=== PATIENT | male | born 1970 | race Two or more races ===

== ENCOUNTER 2019-12-12 13:01 | Emergency (ER) | payer OTHER, BC ==
--- NOTE | 2019-12-12 13:13 | EDM.PDOC ---
ED HPI GENERAL MEDICAL PROBLEM - General Chief Complaint: Lower Extremity Injury/Pain Stated Complaint: RT ANKLE INJURY Time Seen by Provider: 12/12/19 13:05 - History of Present Illness INITIAL COMMENTS - FREE TEXT/NARRATIVE: 49-year-old male presents the emergency room with a right ankle injury. This occurred on Thursday. 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 He has had some discomfort with this and it is difficult for him to walk he has pain on both sides of the ankle much worse on the lateral side than on the medial side. Patient denies any other injuries associated with this unfortunate event and he has no other complaints at this time. Past medical history is significant for hypertension and his physician back home is watching his cholesterol. I did notice on his med list that he is on 2 blood pressure medications at the same class and did recommend to the patient that when he gets home he needs to talk to his doctor about this. Right Ankle Pain Score (Numeric/FACES): 7 - Related Data Allergies Allergy/AdvReac Type Severity Reaction Status Date / Time No Known Allergies Allergy Verified 12/12/19 13:12 Home Meds: Home Meds Enalapril Maleate [Vasotec] 5 mg PO DAILY 12/12/19 [History] lisinopriL [Lisinopril] 10 mg PO DAILY 12/12/19 [History] Review of Systems - Review of Systems Review Of Systems: See Below Constitutional: Reports: No Symptoms Respiratory: Reports: No Symptoms Cardiovascular: Reports: No Symptoms GI/Abdominal: Reports: No Symptoms Musculoskeletal: Reports: Other (Ankle pain as stated above) ED EXAM, GENERAL - Physical Exam Exam: See Below Exam Limited By: No Limitations General Appearance: Alert, No Apparent Distress Respiratory/Chest: No Respiratory Distress, Lungs Clear, Normal Breath Sounds Cardiovascular: Regular Rate, Rhythm, No Edema, No Murmur Extremities: Other (Examination of his right foot and ankle show normal neurovascular status palpation of the foot reveals no pain with palpation and to get close to the ankle. He has no pain over the base of the fifth metatarsal with firm palpation. He is developed some ecchymosis on the medial side of the ankle just above the heel fat pad but with palpation of the medial ankle he has minimal discomfort palpation of the ankle on the lateral aspect shows significant tenderness over the anterior talofibular ligament with significant swelling in this area less tenderness over the calcaneal fibular ligament and less swelling as well minimal discomfort and swelling over the posterior talofibular ligament. Palpation up and down the calf reveals no tenderness.) Course - Vital Signs Last Recorded V/S: Last Vital Signs Temp 36.8 C 12/12/19 13:09 Pulse 94 12/12/19 13:09 Resp 16 12/12/19 13:09 BP 137/87 12/12/19 13:09 Pulse Ox 98 12/12/19 13:09 - Orders/Labs/Meds Orders: Active Orders 24 hr Category Date Time Status Ankle Min 3V Rt [CR] Stat Exams 12/12/19 13:19 Taken - Re-Assessments/Exams Free Text/Narrative Re-Assessment/Exam: 12/12/19 13:28 X-ray of the ankle exam is pretty assuring of his lower leg and foot that there is no fractures in these areas. 12/12/19 13:44 X-ray examination of his ankle is negative for acute fracture dislocation he is developing some mild arthritic changes. We will put the patient in an air splint for his ankle. Departure - Departure Time of Disposition: 13:45 Disposition: Home, Self-Care 01 Clinical Impression: Inversion sprain of right ankle - Discharge Information Referrals: PCP,None [Primary Care Provider] - Forms: ED Department Discharge, ED Return to Work/School Form Additional Instructions: Return to the emergency room with any questions problems or worsening symptoms. 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 Tylenol as needed for discomfort. Keep your foot elevated as much as you can when you are not working this may help with the swelling. Sepsis Event Note - Focused Exam Vital Signs: Vital Signs Temp Pulse Resp BP Pulse Ox 12/12/19 13:09 36.8 C 94 16 137/87 98 Date Exam was Performed: 12/12/19 Time Exam was Performed: 13:44 - My Orders Last 24 Hours: My Active Orders 12/12/19 13:19 Ankle Min 3V Rt [CR] Stat - Assessment/Plan Last 24 Hours: My Active Orders 12/12/19 13:19 Ankle Min 3V Rt [CR] Stat
--- NOTE | 2019-12-12 13:49 | CR ---
Right ankle: 4 views of the right ankle were obtained. Comparison: No previous ankle exam. Ankle mortise is symmetric. No fracture, dislocation or other bony abnormality is identified. Soft tissue swelling is noted. Impression: 1. Soft tissue swelling. 2. No acute bony abnormality is appreciated. Diagnostic code #2 This report was dictated in MDT
== END 2019-12-12 14:20 | disposition home or self-care (01) ==
LOC: JD.ED 13:01
DX: S93.401A Sprain of unspecified ligament of right ankle, initial encounter (principal); Z79.899 Other long term (current) drug therapy; X50.9XXA Other and unspecified overexertion or strenuous movements or postures, initial encounter
CPT/HCPCS: 73610-26-RT; 73610-RT; 99282; 99283-25

== ENCOUNTER 2023-06-24 17:10 | Emergency (ER) | payer BC ==
[2023-06-24] MEDS ORDERED: Capsaicin 0.1% Cream 42.5 GM Tube TOP ONE (17:59)
[2023-06-24] MEDS ORDERED: Naproxen 500 MG Tab PO ONE (18:31)
== END 2023-06-24 19:12 | disposition home or self-care (01) ==
LOC: JD.ED 17:10
DX: M25.561 Pain in right knee (principal); I10 Essential (primary) hypertension; Z86.16 Personal history of COVID-19; Z79.899 Other long term (current) drug therapy
CPT/HCPCS: 73562-26-RT; 73562-RT; 99283; A9270-GY

== ENCOUNTER 2025-05-06 12:15 | Emergency (ER) | payer BC ==
[2025-05-06] MEDS: Orphenadrine 100 MG Tab.ER PO STA (12:42)
[2025-05-06] MEDS: Ketorolac 60 MG/2 ML SDV IM ONE (12:43)
== END 2025-05-06 14:04 | disposition home or self-care (01) ==
LOC: JD.ED 12:15
DX: M54.6 Pain in thoracic spine (principal); I10 Essential (primary) hypertension; Z79.899 Other long term (current) drug therapy; Z86.16 Personal history of COVID-19
CPT/HCPCS: 96372; 99283; A9270; J1885